=== PATIENT | female | born 1995 | race Two or more races ===

== ENCOUNTER 2024-04-03 10:41 | Outpatient (CLI) | payer OTHER | END 2024-04-03 10:42 | disposition home or self-care (01) | LOC: PRENATAL 10:41 | PROVIDERS: ATTEND Obstetrics & Gynecology Maternal & Fetal Medicine | DX: O36.80X0 Pregnancy with inconclusive fetal viability, not applicable or unspecified (principal); Z36.82 Encounter for antenatal screening for nuchal translucency; O36.1999 Maternal care for other isoimmunization, unspecified trimester, other fetus; Z14.8 Genetic carrier of other disease; Z3A.12 12 weeks gestation of pregnancy ==

== ENCOUNTER 2024-05-29 07:57 | Outpatient (CLI) | payer OTHER | END 2024-05-29 07:58 | disposition home or self-care (01) | LOC: PRENATAL 07:57 | PROVIDERS: ATTEND Obstetrics & Gynecology Maternal & Fetal Medicine | DX: O44.00 Complete placenta previa NOS or without hemorrhage, unspecified trimester (principal); O36.1999 Maternal care for other isoimmunization, unspecified trimester, other fetus; Z3A.20 20 weeks gestation of pregnancy ==

== ENCOUNTER → 2024-07-19 08:21 | Outpatient (CLI) | payer OTHER | END | disposition home or self-care (01) | LOC: PRENATAL 08:21 | PROVIDERS: ATTEND Obstetrics & Gynecology Maternal & Fetal Medicine | DX: O26.849 Uterine size-date discrepancy, unspecified trimester (principal); O36.1999 Maternal care for other isoimmunization, unspecified trimester, other fetus; O43.90 Unspecified placental disorder, unspecified trimester; Z3A.28 28 weeks gestation of pregnancy ==

== ENCOUNTER 2024-09-26 11:30 | Inpatient (IN) | payer OTHER ==
[~2024-09-26] VITALS: Ht 157.5 cm; Wt 74.4 kg
[2024-09-26 12:38] LABS: BASO % 0.2 % (0.1-1.2); EOS # 0.05 (0.04-0.54); EOS % 0.9 % (0.7-7.0); LYMPH # 1.17 (1.18-3.74); LYMPH % 20.5 % (19.3-53.1); MEAN PLATELET VOLUME 11.20 fl (9.4-12.4); MONO # 0.42 (0.24-0.82); MONO % 7.3 % (4.7-12.5); NEUT # 4.04 (1.56-6.13); NEUT % 70.6 % (34.0-71.1); RED CELL DISTRIBUTION WIDTH 12.4 % (11.6-14.4)
[2024-09-26 12:42] LABS: URINE APPEARANCE Clear; URINE BILIRRUBIN Negative (NEGATIVE); URINE BLOOD Large; URINE COLOR Yellow; URINE GLUCOSE Negative (NEGATIVE); URINE KETONE Negative (NEGATIVE); URINE LEUKOCYTE Large; URINE NITRATE Negative; URINE PROTEIN Negative (NEGATIVE); URINE UROBILINOGEN 0.2 E.U./dl
[2024-09-26 12:49] LABS: URINE BACTERIA 1084.2 uL (0.0-1933); URINE EPITHELIAL CELLS 70.4 uL (0.0-38.8); URINE RBC 37.7 uL (0.0-20.8); URINE WBC 243.6 uL (0.0-23.2)
[2024-09-26 13:00] LABS: TYPE CELLS SQUAMOUS; URINE CAST 0.14 uL (0.0-1.40)
[2024-09-26 13:07] LABS: INR < 0.93
[2024-09-26 13:19] LABS: ALT/SGPT 37.0 U/L (12-78); AST/SGOT 22.0 U/L (15-37); BILIRUBIN TOTAL 0.44 mg/dL (0.3-1.2); BUN CREA RATIO 24.0 (7.0-25.0); CREATININE SERUM 0.42 mg/dL (0.55-1.02); GFR 175.98; GLOBULINA 3.5 G/DL (2.4-3.5); GLUCOSE FASTING 88.0 mg/dL (65-100); OSMOLALITY SERUM 278.0 MOSM/KG (275-295)
[2024-10-03 16:46] VITALS: BP 109/57
[2024-10-03] MEDS ORDERED: PRENATAL TABLE1 EAC1 PO (17:03)
[2024-10-03] MEDS ORDERED: FISH OIL 1,001000 MG PO (17:03)
[2024-10-03] MEDS ORDERED: RINGERS SOLUTION,LACTATED 1,000 ML IV SCH (17:45)
[2024-10-03] MEDS ORDERED: AMPICILLIN SODIUM 2,000 MG VIAL IV ONE (17:45)
[2024-10-03 19:03] VITALS: BP 117/65
[2024-10-03] MEDS ORDERED: MORPHINE SULFATE 4 MG/ML CARTRIDGE IV PRN (20:15)
[2024-10-03] MEDS ORDERED: AMPICILLIN SODIUM 1,000 MG VIAL IV SCH (21:00)
[2024-10-04] VITALS (9 sets, daily range): BP systolic 108–123; BP diastolic 63–77
[2024-10-04] MEDS ORDERED: OXYTOCIN 500 ML IV SCH (07:45)
[2024-10-04] MEDS ORDERED: BENZOCAINE/MENTHOL 90 ML BOTTLE TOP PRN (17:30)
[2024-10-04] MEDS ORDERED: ACETAMINOPHEN 500 MG GEL..CAP PO PRN (17:30)
[2024-10-04] MEDS ORDERED: CHLORHEXIDINE GLUCONATE 120 ML BOTTLE TOP ONE (18:30)
[2024-10-04] MEDS ORDERED: LIDOCAINE HCL 1%/EPINEPHRINE 10 ML VIAL IJ ONE (18:30)
[2024-10-04] MEDS ORDERED: ERYTHROMYCIN BASE OPHT 1GM EACH TUBE OP ONE (18:30)
[2024-10-04] MEDS ORDERED: OXYTOCIN 1,000 ML IV SCH (18:30)
[2024-10-05] VITALS: BP 109/71
[2024-10-05 06:15] LABS: BASO % 0.1 % (0.1-1.2); EOS # 0.02 (0.04-0.54); EOS % 0.2 % (0.7-7.0); LYMPH # 1.02 (1.18-3.74); LYMPH % 10.2 % (19.3-53.1); MEAN PLATELET VOLUME 11.00 fl (9.4-12.4); MONO # 0.73 (0.24-0.82); MONO % 7.3 % (4.7-12.5); NEUT # 8.17 (1.56-6.13); NEUT % 81.6 % (34.0-71.1); RED CELL DISTRIBUTION WIDTH 12.1 % (11.6-14.4)
[2024-10-05 08:55] VITALS: BP 103/71
[2024-10-05] MEDS ORDERED: MEASLES,MUMPS,RUBELLA VACC/PF 1 VIAL VIAL SUBCUTANEO ONE (09:00)
[2024-10-05] MEDS ORDERED: PNV,CALCIUM 72/IRON/FOLIC ACID 1 TAB TABLET PO SCH (09:00)
[2024-10-05] MEDS ORDERED: DOCUSATE SODIUM 100MG CAP PO SCH (10:50)
[2024-10-05 16:00] VITALS: BP 101/63
[2024-10-06 02:54] VITALS: BP 107/73
[2024-10-06 08:30] VITALS: BP 97/71
[2024-10-06] MEDS ORDERED: MEASLES,MUMPS,RUBELLA VACC/PF 1 VIAL VIAL SUBCUTANEO STA (13:25)
== END 2024-10-06 14:13 | disposition home or self-care (01) | DRG 807 ==
LOC: LDR 10-03 16:31 → OB/GYN 10-04 20:08 → SURH 10-11 13:30
PROVIDERS: Obstetrics & Gynecology; ADMIT Obstetrics & Gynecology; ATTEND Obstetrics & Gynecology
PROC: 4A1HXCZ Monitoring of Products of Conception, Cardiac Rate, External Approach (ICD-10-PCS; 2024-10-03)
PROC: 10E0XZZ Delivery of Products of Conception, External Approach (ICD-10-PCS; principal; 2024-10-04)
PROC: 0UQMXZZ Repair Vulva, External Approach (ICD-10-PCS; 2024-10-04)
PROC: 0W8NXZZ Division of Female Perineum, External Approach (ICD-10-PCS; 2024-10-04)
DX: O70.0 First degree perineal laceration during delivery (principal); Z37.0 Single live birth; O99.824 Streptococcus B carrier state complicating childbirth; Z3A.38 38 weeks gestation of pregnancy